=== PATIENT | male | born 1945 | race Caucasian/White ===

== ENCOUNTER 2016-10-29 14:43 | Emergency (ER) | payer OTHER, BC ==
[2016-10-29 14:56] VITALS: TEMP 98.4; BMI 23.2
[2016-10-29] MEDS ORDERED: DIPHTH,PERTUSS(ACELL),TET 0.5 ML DISP.SYRIN IM ONE (15:06)
--- NOTE | 2016-10-29 15:30 | PDOC ---
History of Present Illness - General Chief Complaint: Injury Stated Complaint: FALL Time Seen by Provider: 10/29/16 14:59 History Source: Patient Exam Limitations: No Limitations - History of Present Illness Initial Comments: 10/29/16 15:25 71-year-old male with no past medical history presents to the ED secondary to facial injury. 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 Patient states had no LOC but did have moderate amount of bleeding and had noted an abrasion to his nasal bridge and forehead so decided come to the ER. Patient states unknown last tetanus. Patient currently denies headache, dizziness, nausea, visual changes, neck pain or other associated findings. Occurred: reports: just prior to arrival Pain Location: reports: face Method of Injury: Yes: direct blow Modifying Factors: improves with: None Loss of Consciousness: no loss of consciousness Associated Symptoms (Fall): denies symptoms Past History - Past Medical History Allergies/Adverse Reactions: Allergies Allergy/AdvReac Type Severity Reaction Status Date / Time No Known Allergies Allergy Verified 08/12/14 07:57 Home Medications: Ambulatory Orders NK [No Known Home Medication] 08/03/14 Anemia: No Asthma: No Cancer: No Cardiac Disorders: No CVA: No COPD: No CHF: No Dementia: No Diabetes: No GI Disorders: No Disorders: No HTN: No Hypercholesterolemia: No Liver Disease: No Seizures: No Thyroid Disease: No Other medical history: denies - Surgical History Abdominal Surgery: Yes (UMBILICAL HERNIA) Appendectomy: No Cardiac Surgery: No Cholecystectomy: No Lung Surgery: No Neurologic Surgery: No Orthopedic Surgery: No - Immunization History Tetanus Status: Unknown - Psycho/Social/Smoking Cessation Hx Anxiety: No Suicidal Ideation: No Smoking History: Never smoked Have you smoked in the past 12 months: No Information on smoking cessation initiated: No Hx Alcohol Use: No Drug/Substance Use Hx: No Substance Use Type: Alcohol Hx Substance Use Treatment: No Patient Lives Alone: No Trauma Specific PMHX - Complaint Specific PMHX Neck Injury: No Review of Systems - Review of Systems Able to Perform ROS?: Yes Constitutional: No: Symptoms Reported HEENTM: No: Symptoms Reported Cardiac (ROS): No: Lightheadedness ABD/GI: No: Nausea Musculoskeletal: No: Symptoms Reported Integumentary: Yes: See HPI Neurological: No: Headache, Dizziness Hematologic/Lymphatic: No: Symptoms Reported *Physical Exam - Vital Signs Last Vital Signs Temp Pulse Resp BP Pulse Ox 98.4 F 80 20 139/58 97 10/29/16 14:54 10/29/16 14:54 10/29/16 14:54 10/29/16 14:54 10/29/16 14:54 - Physical Exam General Appearance: Yes: Nourished, Appropriately Dressed. No: Apparent Distress HEENT: positive: EOMI, [place], TMs Normal, Pharynx Normal. negative: Rhinorrhea ( no epistaxis) Neck: positive: Supple. negative: Tender, Decreased range of motion Musculoskeletal: negative: Vertebral Tenderness Integumentary: positive: Swelling ( left forehead), Ecchymosis, Other (noted superficial abrasion measuricm above the left eyebrow with surrounding hematoma. no palpable deformity or crepitus over frontal bone. noted missing epithelial over nasal bridge measuring 1 x 1 cm. No septal deviation nasal bridge without crepitus or deformity. no nasal bleeding noted ) Neurologic: positive: Normal Mood/Affect, Motor Strength / ED Treatment Course - RADIOLOGY Radiology Studies Ordered: Category Date Time Status FACIAL BONES CT W/O CONTRAST [CT] Stat CT Scan 10/29/16 15:06 Ordered - Medications Given in the ED: ED Medications Discontinued Medications Generic Name Dose Route Start Last Admin Trade Name Freq PRN Reason Stop Dose Admin Diphtheria/Tetanus/Acell Pertussis 0.5 ml 10/29/16 15:06 10/29/16 15:14 Boostrix - IM 10/29/16 15:07 0.5 ml .ONCE ONE Administration Medical Decision Making - Medical Decision Making 10/29/16 15:35 Patient with facial injury without LOC. Patient ordered for tetanus and facial CT. 10/29/16 16:02 Surgicel applied after area was cleansed with hydrogen peroxide and Betadine. Bacitracin applied to forehead and left nasal fold secondary to superficial abrasion. Ice was then applied. Patient will be discharged home with recommendations to continue ice 72 hours and let Surgicel fall off on its own. 10/29/16 16:15 Unable to speak to the radiologist so reviewed CT with Dr. berry, ED attending and no acute findings were noted including fracture or deformity. Will discharge home *DC/Admit/Observation/Transfer Diagnosis at time of Disposition: Facial contusion Qualifiers: Encounter type: initial encounter Qualified Code(s): S00.83XA - Contusion of other part of head, initial encounter - Discharge Dispostion Disposition: HOME Condition at time of disposition: Good - Referrals Referrals: Ministerio Morales MD [Primary Care Provider] - - Patient Instructions Printed Discharge Instructions: DI for Contusion, DI for Abrasion Additional Instructions: Please apply ice to the affected area for the next 3 days. Please change Band-Aid as needed and do not remove the Surgicel until it falls off on its own. May take Tylenol for headache but if you develop worsening symptoms please return to the ED.
[2016-10-29] MEDS ORDERED: ACETAMINOPHEN 500 MG TABLET (FP) PO ONE (16:18)
[2016-10-29] MEDS ORDERED: ACETAMINOPHEN 325 MG TABLET (FP) ONE (16:22)
[2016-10-29 16:38] VITALS: BP 128/65; PULSE 75
== END 2016-10-29 16:36 | disposition home or self-care (01) ==
LOC: JER 14:43
PROC: 0HQ1XZZ Repair Face Skin, External Approach (ICD-10-PCS; principal; 2016-10-29)
PROC: 3E0234Z Introduction of Serum, Toxoid and Vaccine into Muscle, Percutaneous Approach (ICD-10-PCS; 2016-10-29)
DX: S00.83XA Contusion of other part of head, initial encounter (principal); W20.8XXA Other cause of strike by thrown, projected or falling object, initial encounter; Y93.89 Activity, other specified; Y92.29 Other specified public building as the place of occurrence of the external cause; Y99.8 Other external cause status
CPT/HCPCS: 12011-25; 70486-TC; 90471; 90715; 99283-25

== ENCOUNTER 2017-09-24 09:11 | Emergency (ER) | payer OTHER, BC ==
--- NOTE | 2017-09-24 09:28 | PDOC ---
History of Present Illness - General Chief Complaint: Injury Stated Complaint: back pain s/p fall Time Seen by Provider: 09/24/17 09:12 - History of Present Illness Initial Comments: 09/24/17 09:24 72 M with no PMH presents to ED with back pain s/p fall. Pt went outside to get the newspaper when he slipped on ice and landed directly onto his buttocks. He denies headstrike/LOC. He states he was able to get up immediately afterwards. He denies any pain in his sacrum or hips but states that he has pain in his mid- back. He denies LOZANO/neck pain. Denies lower back pain. Denies CP/SOB/abdominal pain. Denies weakness/numbness/tingling in any extremity. Pt took 2 aleve prior to arrival with minimal improvement in pain. Pt is not on any anticoagulation. Past History - Past Medical History Allergies/Adverse Reactions: Allergies Allergy/AdvReac Type Severity Reaction Status Date / Time No Known Allergies Allergy Verified 09/24/17 09:12 Home Medications: Ambulatory Orders Oxycodone HCl/Acetaminophen [Percocet 5-325 mg Tablet] 1 tab PO TID PRN #21 tablet MDD 3 tabs 09/24/17 Anemia: No Asthma: No Cancer: No Cardiac Disorders: No CVA: No COPD: No CHF: No DVT: No Dementia: No Diabetes: No GI Disorders: No Disorders: No HTN: No Hypercholesterolemia: No Liver Disease: No Seizures: No Thyroid Disease: No - Surgical History Abdominal Surgery: Yes (UMBILICAL HERNIA) Appendectomy: No Cardiac Surgery: No Cholecystectomy: No Lung Surgery: No Neurologic Surgery: No Orthopedic Surgery: No - Suicide/Smoking/Psychosocial Hx Smoking History: Never smoked Have you smoked in the past 12 months: No Information on smoking cessation initiated: No Hx Alcohol Use: No Drug/Substance Use Hx: No Substance Use Type: None Hx Substance Use Treatment: No Trauma Specific PMHX - Complaint Specific PMHX Neck Injury: No Review of Systems - Review of Systems Comments:: 09/24/17 09:26 "GENERAL/CONSTITUTIONAL: No fever or chills. No weakness. HEAD, EYES, EARS, NOSE AND THROAT: No change in vision. No ear pain or discharge. No sore throat. CARDIOVASCULAR: No chest pain or shortness of breath. RESPIRATORY: No cough, wheezing, or hemoptysis. GASTROINTESTINAL: No nausea, vomiting, diarrhea or constipation. GENITOURINARY: No dysuria, frequency, or change in urination. MUSCULOSKELETAL: + Mid upper back pain. No joint or muscle swelling or pain. No neck pain. SKIN: No rash NEUROLOGIC: No headache, vertigo, loss of consciousness, or change in strength/ sensation. ENDOCRINE: No increased thirst. No abnormal weight change. HEMATOLOGIC/LYMPHATIC: No anemia, easy bleeding, or history of blood clots. ALLERGIC/IMMUNOLOGIC: No hives or skin allergy. " *Physical Exam - Physical Exam Comments: 09/24/17 09:27 "GENERAL: Awake, alert, and fully oriented, in no acute distress HEAD: No signs of trauma EYES: PERRLA, EOMI, sclera anicteric, conjunctiva clear ENT: Auricles normal inspection, hearing grossly normal, nares patent, oropharynx clear without exudates. Moist mucosa NECK: Nontender, no stepoffs, Normal ROM, supple, no lymphadenopathy, JVD, or masses LUNGS: Breath sounds equal, clear to auscultation bilaterally. No wheezes, and no crackles HEART: Regular rate and rhythm, normal S1 and S2, no murmurs, rubs or gallops ABDOMEN: Soft, nontender, normoactive bowel sounds. No guarding, no rebound. No masses EXTREMITIES: Normal range of motion, no edema. No clubbing or cyanosis. No cords, erythema, or tenderness NEUROLOGICAL: Cranial nerves II through XII intact. 5/5 strength and sensation in all extremities, Normal speech, normal gait, normal cerebellar function SKIN: Warm, Dry, normal turgor, no rashes or lesions noted. BACK: no midline tenderness, no stepoffs, + bilateral paraspinal tenderness @ T6 -T7 PELVIS: Stable ED Treatment Course - RADIOLOGY Radiology Studies Ordered: Category Date Time Status LUMBAR SPINE CT W/O CONTRAST [CT] Stat CT Scan 09/24/17 09:[address] W/O CONTRAST [CT] Stat CT Scan 09/24/17 09:21 Ordered Medical Decision Making - Medical Decision Making 09/24/17 09:28 72 M with upper back pain s/p fall onto his buttocks. No sign of hip or pelvis injury. Exam only notable for T-spine paraspinal tenderness, no stepoffs or midline tenderness. No neuro deficits to suggest cord compression. - CT T and L spine to r/o compression fx - Analgesia offered and declined by pt 09/24/17 11:11 CT shows age-indeterminate compression fx at T8, consistent with location of pt' s pain. Consult placed to Dr. Jane Pt reassessed - states pain is mostly well controlled, would like to try half tablet of percocet 09/24/17 11:[address] Jane, who recommends pain control and outpt f/u with spine surgeon. 09/24/17 11:45 Pt reassessed - reports pain is well controlled. Ambulating without assistance. Pt is well appearing, with normal vitals. Clinically stable for DC at this time. I discussed the physical exam findings, ancillary test results and final diagnoses with the patient. I answered all of the patient's questions. The patient was satisfied with the care received and felt comfortable with the discharge plan and treatment plan. The patient agrees to follow up with the primary care physician within 24-72 hours. *DC/Admit/Observation/Transfer Diagnosis at time of Disposition: Back pain - Discharge Dispostion Disposition: HOME Condition at time of disposition: Stable - Prescriptions Prescriptions: Oxycodone HCl/Acetaminophen [Percocet 5-325 mg Tablet] 1 tab PO TID PRN #21 tablet MDD 3 tabs PRN Reason: Pain - Referrals Referrals: Uli Redding MD [Staff Physician] - - Patient Instructions Printed Discharge Instructions: Oxycodone, DI for Thoracic Back Pain Additional Instructions: Your CT scan showed a small compression fracture of your thoracic spine (at level T8). Please follow up with an orthopedic surgeon within 48-72 hours for further evaluation and treatment of this fracture. Call the number provided if you do not have your own orthopedist to follow up with. Take ibuprofen, aleve, or tylenol as needed for pain. For severe pain, you can take up two tablets of percocet. If you experience worsening pain, weakness or numbness in your arms or legs, difficulty walking, or any other concerning symptoms, return to the ER immediately. - Post Discharge Activity - Attestations Physician Attestion: 09/24/17 10:52 I, Dr. Sebastián Jeffries MD, attest that this document has been prepared under my direction and personally reviewed by me in its entirety. I further attest, that it accurately reflects all work, treatment, procedures and medical decision -making performed by me.
[2017-09-24 09:30] VITALS: BP 148/92; PULSE 61; TEMP 98.7; BMI 50.5
== END 2017-09-24 11:55 | disposition home or self-care (01) ==
LOC: FER 09:11
DX: M54.9 Dorsalgia, unspecified (principal); W00.0XXA Fall on same level due to ice and snow, initial encounter; Y93.89 Activity, other specified; Y92.008 Other place in unspecified non-institutional (private) residence as the place of occurrence of the external cause
CPT/HCPCS: 72128-TC; 72131-TC; 99281-25